=== PATIENT | female | born 1995 | race Caucasian/White ===

== ENCOUNTER 2017-05-29 10:26 | Emergency (ER) | payer MEDICAID, OTHER ==
[~2017-05-29] VITALS: Ht 160 cm; Wt 54.4 kg
[2017-05-29 10:31] VITALS: BP_SYST 121
== END 2017-05-29 10:59 | disposition home or self-care (01) ==
LOC: SED 10:26
DX: J03.90 Acute tonsillitis, unspecified (principal)
CPT/HCPCS: 36415; 86403; 87081; 99284

== ENCOUNTER 2018-05-27 11:05 | Emergency (ER) | payer MEDICAID ==
[~2018-05-27] VITALS: Ht 160 cm; Wt 55.8 kg
[2018-05-27 11:05] VITALS: BP_SYST 118
[2018-05-27] MEDS ORDERED: MAGNESIUM CITRATE 300 ML ORAL SOLUTION PO ONE (11:45)
[2018-05-27] MEDS ORDERED: IBUPROFEN 600 MG TABLET PO ONE (11:45)
[2018-05-27 12:30] VITALS: BP_SYST 102
== END 2018-05-27 12:30 | disposition home or self-care (01) ==
LOC: SED 11:05
DX: B34.9 Viral infection, unspecified (principal)
CPT/HCPCS: 81025; 99283

== ENCOUNTER 2018-05-29 08:54 | Emergency (ER) | payer MEDICAID ==
[~2018-05-29] VITALS: Ht 160 cm; Wt 55.8 kg
[2018-05-29 08:55] VITALS: BP_SYST 121
--- NOTE | 2018-05-29 08:55 | NUR ---
BROUGHT BACK TO BED #3 AND TRIAGED. REPORT GIVEN TO CASANDRA
--- NOTE | 2018-05-29 09:00 | NUR ---
patient arrived AOx4 with mother at bedside. patient stated she has had urine frequency and chest congestion since her last visit to the ER. Patient has no other complaint or injury at this time.
--- NOTE | 2018-05-29 09:00 | NUR ---
ER at bedside examining patient.
[2018-05-29] MEDS ORDERED: KETOROLAC TROMETHAMINE 30 MG VIAL IVP ONE (10:00)
[2018-05-29] MEDS ORDERED: LORazepam 2 MG/ML VIAL (FOR ER USE) IVP ONE (10:00)
[2018-05-29] MEDS ORDERED: NACL 0.9% 1,000 ML IV ONE (10:00)
[2018-05-29] MEDS ORDERED: ALBUTEROL SULFATE 0.083% 2.5 MG/3 ML VIAL.NEB INH ONE (10:00)
[2018-05-29 10:05] LABS: BILIRUBIN,URINE 1+ (NEGATIVE); CLARITY/URINE CLEAR (CLEAR); COLOR,URINE YELLOW (YELLOW); GLUCOSE,URINE NEGATIVE (NEGATIVE); KETONES,URINE 3+ (NEGATIVE); LEUKOCYTE ESTERASE ,URINE NEGATIVE (NEGATIVE); NITRITE, URINE NEGATIVE (NEGATIVE); PROTEIN URINE TRACE (NEGATIVE); UROBILINOGEN,URINE 0.2 (0.2-1.0)
[2018-05-29 10:09] LABS: BLOOD, URINE TRACE (NEGATIVE)
[2018-05-29 10:16] LABS: BACTERIA,URINE FEW /HPF (None Seen); MUCUS,URINE 1+ /LPF (None Seen)
[2018-05-29 10:54] LABS: HEMATOCRIT 44.6 % (36-48); HEMOGLOBIN 14.7 g/dL (12.0-16.0); LYMPHOCYTES # (AUTO) 0.9 K/uL (1.0-5.5); MEAN CORPUSCULAR HEMOGLOBIN 31 pg (27-31); MEAN CORPUSCULAR HGB CONC 33 % (32-36); MEAN CORPUSCULAR VOLUME 94 fL (79.0-98.0); MONOCYTES # (AUTO) 0.3 K/uL (0.0-1.0); NEUTROPHILS # (AUTO) 1.4 K/uL (1.8-7.7); PLATELET COUNT (AUTO) 139 K/uL (130-430); RED BLOOD CELL COUNT(AUTO) 4.72 MIL/uL (4.2-6.2); RED CELL DISTRIBUTION WIDTH 11.7 % (9.0-15.0); WHITE BLOOD COUNT (AUTO) 2.6 K/uL (4.8-10.8)
--- NOTE | 2018-05-29 11:00 | NUR ---
patient given medication as ordered. will continue to monitor
[2018-05-29 11:12] LABS: BASOPHILS % (AUTO) 0.8 % (0.0-2.0); MONOCYTES % (AUTO) 13.2 % (1.7-9.3)
[2018-05-29] MEDS ORDERED: SULFAMETHOXAZOLE/TRIMETHOPR DS 1 TABLET PO ONE (11:15)
[2018-05-29 11:22] LABS: ALANINE AMINOTRANSFERASE 25 U/L (12-78); ANION GAP 11 (5-15); ASPARTATE AMINOTRANSFERASE 26 U/L (10-37); CALCIUM 8.7 mg/dL (8.4-11.0); CHLORIDE 101 mmol/L (98-107); CREATININE 0.67 mg/dL (0.55-1.30); GLUCOSE 100 mg/dL (70-99); LIPASE 91 U/L (73-393); SODIUM SERUM 138 mmol/L (136-145); TOTAL BILIRUBIN 0.5 mg/dL (0.0-1.0); UREA NITROGEN, BLOOD 12 mg/dL (8-21)
[2018-05-29 11:25] LABS: POTASSIUM 2.8 mmol/L (3.5-5.1)
[2018-05-29] MEDS ORDERED: POTASSIUM CHLORIDE 20 MEQ/PKT PACKET PO ONE (11:30)
[2018-05-29 12:17] VITALS: BP_SYST 120
--- NOTE | 2018-05-29 12:19 | NUR ---
Note undone in EDM - 05/29/18 at 1251 by [email or web address] Patient given written and verbal discharge instructions and verbalizes understanding. ER discussed with patient the results and treatment provided. Patient in stable condition. ID arm band removed. IV catheter removed intact and dressing applied, no active bleeding. Rx of Augmentin, Albuterol, Promethazine VC with codeine given. Patient educated on pain management and to follow up with PMD. Pain Scale 0/10. Opportunity for questions provided and answered. Medication side effect fact sheet provided.
[2018-05-29] MEDS ORDERED: ONDANSETRON 4 MG ODT TAB PO ONE (12:30)
--- NOTE | 2018-05-29 12:40 | NUR ---
Patient given written and verbal discharge instructions and verbalizes understanding. ER MD discussed with patient the results and treatment provided. Patient in stable condition. ID arm band removed. IV catheter removed intact and dressing applied, no active bleeding. Rx of Augmentin, Albuterol, Promethazine VC with codeine given. Patient educated on pain management and to follow up with PMD. Pain Scale 0/10. Opportunity for questions provided and answered. Medication side effect fact sheet provided.
== END 2018-05-29 12:17 | disposition home or self-care (01) ==
LOC: SED 08:54
DX: E87.6 Hypokalemia (principal); R03.0 Elevated blood-pressure reading, without diagnosis of hypertension; Z90.89 Acquired absence of other organs
CPT/HCPCS: 36415; 74018; 80053; 81000; 81025; 83690; 85025; 87086; 94640; 96374; 96375; 99284; J1885; J2060; J7030; J7613; Q0162

== ENCOUNTER 2019-01-13 12:56 | Emergency (ER) | payer MEDICAID ==
[~2019-01-13] VITALS: Ht 160 cm; Wt 54.4 kg
[2019-01-13 13:05] VITALS: BP_SYST 117
[2019-01-13 13:50] VITALS: BP_SYST 114
== END 2019-01-13 13:50 | disposition home or self-care (01) ==
LOC: SED 12:56
DX: J06.9 Acute upper respiratory infection, unspecified (principal); F12.90 Cannabis use, unspecified, uncomplicated; Z88.8 Allergy status to other drugs, medicaments and biological substances; Z90.89 Acquired absence of other organs
CPT/HCPCS: 99283

== ENCOUNTER 2019-05-23 10:20 | Emergency (ER) | payer MEDICAID ==
[~2019-05-23] VITALS: Ht 160 cm; Wt 54.4 kg
[2019-05-23 10:57] VITALS: BP_SYST 132
--- NOTE | 2019-05-23 13:50 | NUR ---
Patient to ER bed H1 to gown for evaluation. Side rails up.
[2019-05-23] MEDS ORDERED: DIPH-TET-PERTUS Vaccine 0.5 ML VIAL (ADACEL) I.M. ONE (14:00)
[2019-05-23] MEDS ORDERED: ACETAMINOPHEN/CODEINE 300 MG-30 MG TABLET PO ONE (14:00)
[2019-05-23] MEDS ORDERED: BACITRACIN 1 GM OINT TP ONE ×2 (14:00→14:06)
--- NOTE | 2019-05-23 14:00 | NUR ---
ER at bedside examining patient.
--- NOTE | 2019-05-23 14:08 | NUR ---
pt getting right 5th finger cleansed and splinted. Pt tolerated well
--- NOTE | 2019-05-23 14:10 | NUR ---
medicated the pt w/ Tylenol w/ codeine per MD order.
--- NOTE | 2019-05-23 14:16 | NUR ---
Patient given written and verbal discharge instructions and verbalizes understanding. ER MD discussed with patient the results and treatment provided. Patient in stable condition. ID arm band removed. Rx of Tylenol w/ codeine and Neosprin given. Patient educated on pain management and to follow up with PMD. Pain Scale 3/10. Opportunity for questions provided and answered. Medication side effect fact sheet provided.
[2019-05-23 14:55] VITALS: BP_SYST 132
== END 2019-05-23 14:30 | disposition home or self-care (01) ==
LOC: SED 10:20
DX: S61.306A Unspecified open wound of right little finger with damage to nail, initial encounter (principal); F12.90 Cannabis use, unspecified, uncomplicated; Z88.8 Allergy status to other drugs, medicaments and biological substances; W22.8XXA Striking against or struck by other objects, initial encounter; Y93.89 Activity, other specified; Y92.89 Other specified places as the place of occurrence of the external cause; Y99.8 Other external cause status
CPT/HCPCS: 90715; 99283

== ENCOUNTER 2019-05-25 12:05 | Emergency (ER) | payer MEDICAID ==
[~2019-05-25] VITALS: Ht 160 cm; Wt 54.4 kg
[2019-05-25 12:16] VITALS: BP_SYST 138
--- NOTE | 2019-05-25 12:20 | NUR ---
Patient to ER bed 7 to gown for evaluation. Side rails up.
--- NOTE | 2019-05-25 12:21 | NUR ---
Patient presents to ER for Recheck right pinky injury 2 days ago. Patient A&Ox4, afebrile, ambulatory to ER, arrived with mother, pain 6/10 to right pinky. Right pinky splint removed, pinky nail intact, skin pink, no blood.
--- NOTE | 2019-05-25 12:25 | NUR ---
ER Dr. STANTON at bedside examining patient.
--- NOTE | 2019-05-25 12:47 | NUR ---
Dr. Bruce at BS for right pinky nail removal. Edges well approximated. Site cleansed with sterile water. Non-adheringDressing applied to site. No bleeding noted. Pt tolerated well.
[2019-05-25] MEDS ORDERED: LIDOCAINE 2%, 20 ML MDV ONE (12:55)
[2019-05-25] MEDS ORDERED: BACITRACIN 1 GM OINT TP ONE (13:17)
--- NOTE | 2019-05-25 13:29 | NUR ---
Patient given written and verbal discharge instructions and verbalizes understanding. ER MD Bruce discussed with patient the results and treatment provided. Patient in stable condition. ID arm band removed. Rx of Motrin given. Patient educated on pain management and to follow up with PMD. Pain Scale 0. Opportunity for questions provided and answered. Medication side effect fact sheet provided.
[2019-05-25 13:34] VITALS: BP_SYST 142
== END 2019-05-25 13:29 | disposition home or self-care (01) ==
LOC: SED 12:05
DX: S61.306A Unspecified open wound of right little finger with damage to nail, initial encounter (principal); Z88.8 Allergy status to other drugs, medicaments and biological substances; W22.8XXA Striking against or struck by other objects, initial encounter; Y93.89 Activity, other specified; Y92.89 Other specified places as the place of occurrence of the external cause; Y99.8 Other external cause status
CPT/HCPCS: 11730; 99283; J2001

== ENCOUNTER 2019-05-28 12:24 | Emergency (ER) | payer MEDICAID ==
[~2019-05-28] VITALS: Ht 160 cm; Wt 54.4 kg
[2019-05-28 12:25] VITALS: BP_SYST 115
--- NOTE | 2019-05-28 14:01 | NUR ---
BROUGHT BACK TO BED #4 AND REPORT GIVEN TO JUSTIN
--- NOTE | 2019-05-28 14:15 | NUR ---
Dr. Qureshi at bedside for examination.
--- NOTE | 2019-05-28 14:20 | NUR ---
Patient brought in to ED for recheck of right 5th digit. Per report, nail taken out on 05/25/2019. Finger reported now to be swollen and has blisters. Patient in no signs of distress at this time. Patient does not complain of pain.
--- NOTE | 2019-05-28 14:30 | NUR ---
Splint applied to L pinky. Pt tolerated well. No adverse reactions noted.
--- NOTE | 2019-05-28 14:37 | NUR ---
Patient given written and verbal discharge instructions and verbalizes understanding. ER MD Qureshi discussed with patient the results and treatment provided. Patient in stable condition. ID arm band removed. No Rx given. Patient educated on pain management and to follow up with PMD. Pain Scale 0. Opportunity for questions provided and answered. Medication side effect fact sheet provided.
[2019-05-28 14:42] VITALS: BP_SYST 130
== END 2019-05-28 14:37 | disposition home or self-care (01) ==
LOC: SED 12:24
DX: S61.306A Unspecified open wound of right little finger with damage to nail, initial encounter (principal); Z88.8 Allergy status to other drugs, medicaments and biological substances; X58.XXXA Exposure to other specified factors, initial encounter; Y93.89 Activity, other specified; Y92.89 Other specified places as the place of occurrence of the external cause; Y99.8 Other external cause status
CPT/HCPCS: 99283